=== PATIENT | male | born 1950 | race Caucasian/White ===

== ENCOUNTER 2017-11-18 05:14 | Day surgery (SDC) | payer BC, SELFPAY ==
[2017-11-18] VITALS (7 sets, daily range): BP systolic 93–125; BP diastolic 66–81; PULSE 66–83; RESP 16; TEMP 36.4–36.9; O2SAT 94–99; BMI 26.0
--- NOTE | 2017-11-18 07:26 | HP.PCM_ITS ---
Problem List (1) Screen for colon cancer Status: Acute History of Present Illness Date of Admission: 11/18/17 The patient is a 66 year old M who presents for screening colonoscopy. Past Medical History Medical History: Medical History (Last Reviewed 11/18/17 @ 07:25 by Perry Jacobo MD) Arthritis M19.90 Allergies No Known Allergies Allergy (Verified 11/15/17 10:22) Home Medications: Ambulatory Orders Medication Instructions Recorded Cider Vinegar [Apple Cider Vinegar] 300 mg PO DAILY 11/15/17 Cyanocobalamin [Vitamin B12] 500 mcg PO DAILY@0800 11/15/17 Multivitamin [Multiple Vitamins] 1 each PO DAILY 11/15/17 [place]-3 Fatty Acids/Fish Oil [Fish 1 each PO DAILY 11/15/17 Oil 1,000 mg Capsule] Omeprazole 20 mg PO PRN PRN 11/15/17 Saw/Vit E/Sod Tori/Lyc/Beta/Pyg 1 each PO DAILY 11/15/17 [Prostate Health Caplet] Smoking Status: Never smoker - *Family History Maternal History Items: No pertinent history Review of Systems Cardiovascular: Denies: Chest Pain, Chest Pressure, Chest Tightness, Palpitat ions Respiratory: Denies: Cough, Hemoptysis, Shortness of breath at rest, Shortness of breath upon exertion, Wheezing Gastrointestinal: Denies: Abdominal Pain, Constipation, Diarrhea, Hematemesis, Nausea, Melena, Vomiting VTE Information - Inpt Only VTE Present on Admission: No VTE Mechan Device Prophylaxis: None VTE Pharm Prophylaxis ordered?: No Reason prophylaxis not ordered:: Treatment Not Indicated Patient Problems: Active and Suspected Problems (Last Updated 01/29/17 @ 15:57 by Yris Jackman) Screen for colon cancer (Acute) - Physical Exam Lungs: Clear to auscultation Cardiovascular: Regular rate, Regular Rhythm, No murmurs Abdomen: Bowel Sounds Present, Soft, Non Tender, Non-Distended Vital Signs Temp Pulse Resp BP Pulse Ox 98.5 F 83 16 125/81 H 99 11/18/17 05:43 11/18/17 05:43 11/18/17 05:43 11/18/17 05:43 11/18/17 05:43 Oxygen Delivery Method Room Air Weight: 173 lb 11.588 oz Body Mass Index (BMI) 26.0 Assessment/Plan All Active Problems (Last Updated 01/29/17 @ 15:57 by Yris Jackman) Screen for colon cancer (Acute) Low back strain (Acute) Plan is to perform a colonoscopy.
--- NOTE | 2017-11-18 07:31 | OP.ENDO_ITS ---
Patient Name: Willie Briseno Procedure Date: 11/18/2017 7:04 AM Date of : 1950 Age: 66 Procedure: Colonoscopy Indications: Screening for colorectal malignant neoplasm Providers: Perry Jacobo MD Referring MD: Mark Obando MD Medicines: See the Anesthesia note for documentation of the administered medications Patient Profile: Last Colonoscopy: more than 10 years ago. Complications: No immediate complications. Procedure: Pre-Anesthesia Assessment: - Prior to the procedure, a History and Physical was performed, and patient medications and allergies were reviewed. The patient's tolerance of previous anesthesia was also reviewed. The risks and benefits of the procedure and the sedation options and risks were discussed with the patient. All questions were answered, and informed consent was obtained. Prior Anticoagulants: The patient has taken no previous anticoagulant or antiplatelet agents. ASA Grade Assessment: II - A patient with mild systemic disease. After reviewing the risks and benefits, the patient was deemed in satisfactory condition to undergo the procedure. After I obtained informed consent, the scope was passed under direct vision. Throughout the procedure, the patient's blood pressure, pulse, and oxygen saturations were monitored continuously. The adult colonoscope was introduced through the anus and advanced to the terminal ileum. The colonoscopy was performed without difficulty. The patient tolerated the procedure well. The quality of the bowel preparation was good. Scope In: 7:12:27 AM Scope Withdrawal Time 0 hours 6 minutes 8 seconds Scope Out: 7:23:44 AM Total Procedure Duration Time 0 hours 11 minutes 17 seconds Findings: The perianal and digital rectal examinations were normal. Multiple small-mouthed diverticula were found in the sigmoid colon. No biopsies or other specimens were collected for this exam. Non-bleeding internal hemorrhoids were found during retroflexion. The hemorrhoids were mild and small. The exam was otherwise without abnormality. Impression: - Diverticulosis in the sigmoid colon. No specimens collected. - Non-bleeding internal hemorrhoids. - The examination was otherwise normal. Recommendation: - Discharge patient to home. - Resume previous diet. - Continue present medications. - Repeat colonoscopy in 10 years for screening purposes. - Return to primary care physician PRN. Procedure Code(s): --- Professional --- G0121, Colorectal cancer screening; colonoscopy on individual not meeting criteria for high risk Diagnosis Code(s): --- Professional --- Z12.11, Encounter for screening for malignant neoplasm of colon K64.8, Other hemorrhoids K57.30, Diverticulosis of large intestine without perforation or abscess without bleeding CPT copyright 2017 [employer]. All rights reserved. The codes documented in this report are preliminary and upon service bar cashier review may be revised to meet current compliance requirements. MD Perry Fernández MD 11/18/2017 7:30:24 AM This report has been signed electronically. Number of Addenda: 0 Note Initiated On: 11/18/2017 7:04 AM
== END 2017-11-18 08:10 | disposition home or self-care (01) ==
LOC: EN 05:15 → AC 05:21
PROVIDERS: Family Provider Family Medicine; PCP Family Medicine; Referring Provider Surgery; Visit Provider Surgery
PROC: 0DJD8ZZ Inspection of Lower Intestinal Tract, Via Natural or Artificial Opening Endoscopic (ICD-10-PCS; CPT 45378; principal; 2017-11-18 06:55)
DX: Z12.11 Encounter for screening for malignant neoplasm of colon (principal); K57.30 Diverticulosis of large intestine without perforation or abscess without bleeding; K64.8 Other hemorrhoids; S39.012A Strain of muscle, fascia and tendon of lower back, initial encounter; X58.XXXA Exposure to other specified factors, initial encounter; Y93.9 Activity, unspecified; Y92.9 Unspecified place or not applicable; Y99.9 Unspecified external cause status
CPT/HCPCS: 45378; J7120

== ENCOUNTER 2018-01-07 08:03 | Emergency (ER) | payer BC, SELFPAY ==
[2018-01-07 08:04] VITALS: BP 136/92; PULSE 70; RESP 16; TEMP 36.6; O2SAT 98; BMI 27.3
--- NOTE | 2018-01-07 08:24 | EKG12_ITS ---
Test Reason : WEAKNESS Blood Pressure : / mmHG Vent. Rate : 060 BPM Atrial Rate : 060 BPM P-R Int : 154 ms QRS Dur : 096 ms QT Int : 428 ms P-R-T Axes : 007 -30 -01 degrees QTc Int : 428 ms Normal sinus rhythm Left axis deviation Minimal voltage criteria for LVH, may be normal variant Abnormal ECG Confirmed by ZULMA JACOBS, AYUSH ([id number]), editor continuity and script JAMAL CHEN ([id number]) on 01/10/2018 2:23:46 PM Referred By: TING Confirmed By:AYUSH MAYA MD
[2018-01-07 09:42] LABS: Absolute Lymphocyte Count 0.97 X10^3/ul (0.83-4.51); Absolute Neutrophil Count 4.5 X10^3/uL (2.0-7.7); Basophil# 0.03 X10^3/uL; Basophil% 0.5 % (0-1); Eosinophil# 0.06 X10^3/uL; Hematocrit 43.7 % (40-54); Hemoglobin 14.6 g/dl (13.0-16.5); Lymphocyte # 0.97 X10^3/ul (4.0); Mean Corp Hgb Conc 33.4 g/gl (32-36); Mean Corpuscular Hgb 30.3 pg (27.0-32.0); Mean Corpuscular Volume 90.7 fL (80-94); Mean Platelet Vol. 9.7 fl (6.2-12.0); Monocyte# 0.55 X10^3/uL; Neutrophil # 4.47 X10^3/uL (2.7-7.7); Neutrophil % 73.5 % (47-70); Platelet Count 198 K/mm3 (150-450); RBC Distribution Width CV 12.7 % (11.6-14.6); RBC Distribution Width SD 42.1 fl (35.1-43.9); Red Blood Count 4.82 M/mm3 (4.6-6.2); White Blood Count 6.1 K/mm3 (4.4-11.0)
[2018-01-07 09:44] LABS: POSITIVE COUNT NO; POSITIVE DIFFERENTIAL NO; POSITIVE MORPHOLOGY NO
[2018-01-07 09:53] LABS: Bacteria 0 SEEN /hpf (None Seen); Mucous, Urine 0 SEEN /hpf (<or=2+); Red Blood Cells-Urine 0 SEEN /hpf (0-5); Squamous Epithelial Cells - UA 0 SEEN /hpf (0-5); White Blood Cells 0 SEEN /hpf (0-5)
[2018-01-07 10:04] LABS: Color, Urine Yellow (Yellow); Glucose, Dipstick Normal (Normal); Ketone-Dipstick Negative (Negative); Leukocyte Esterase-Dipstick Negative /ul (Negative); Nitrite-Dipstick Negative (Negative); Occult Blood-Urine Negative /ul (Negative); Protein-Dipstick Negative (Negative); Specific Gravity, Urine 1.005 (1.002-1.030); Urine Bilirubin Dipstick Negative (Negative); Urine Clarity Clear (Clear); Urine Urobilinogen Normal (Normal); Urine pH 6.5 (5.0 - 8.0)
[2018-01-07 10:08] LABS: ALB/GLOB Ratio 1.1 RATIO (0.9-2.4); AST(SGOT) 18 U/L (15-37); Alanine Aminotransfer ALT/SGPT 23 U/L (16-61); Albumin, Serum 3.7 g/dL (3.2-5.0); Alkaline Phosphatase 58 U/L (45-117); Anion Gap 8 (5-15); BUN 17 mg/dL (7-18); BUN/Creat Ratio 17.7 RATIO (10-20); Calcium,Total 8.8 mg/dL (8.5-10.1); Chloride 108 mmol/L (98-107); Creatinine, Serum 0.96 mg/dL (0.70-1.30); EST Glomerular Filtration Rate 83 mL/min (>60); Est Glom Filt Rate - Afr Amer 100 mL/min (>60); Estimated Creatinine Clearance 71.25 ml/min; Globulin 3.4 g/dL (2.2-4.2); Glucose 84 mg/dL (74-106); Potassium 4.5 mmol/L (3.5-5.1); Protein, Total 7.1 g/dL (6.4-8.2); Sodium Level 143 mmol/L (136-145); Thyroid Stim Hormone (TSH) 1.15 uIU/mL (0.358-3.74)
--- NOTE | 2018-01-07 10:35 | ED.DCSUM_ITS ---
- ER Visit Summary Date of Service: 01/07/18 Chief Complaint: [Fatigue] History of Present Illness: The patient is a 67 M [presents the emergency department complaint of fatigue that is been going on for 2-3 weeks. Patient thinks that he has had intermittent symptoms going back even further than that. Patient states that he is not been sleeping well at night and at times will wake up and have a hard time falling back asleep. Patient does do a physical job at work but denies any chest pain or significant exertional dyspnea. Patient denies any fever or cough. He denies recent illness. Patient has a family history of thyroid issues and he is not sure if his thyroid might be an issue. Patient denies any blood in his stool or black tarry stool. Patient did have a colonoscopy in November of this year that was unremarkable.] Physical Examination: [HEENT-PERRLA, EOMI. Cranial nerves II through XII grossly intact. TMs clear. Mucous membranes moist. No adenopathy. Cardiovascular-regular rate and rhythm without murmur or ectopy Lungs-clear to auscultation, chest wall stable without crepitus or subcu emphysema Abdomen-normoactive bowel sounds, soft, nontender, no rebound or rigidity, no peritoneal signs. Extremities-intact ?4, normal range of motion, normal pulses, atraumatic] Test Results: [EKG obtained arrival shows sinus rhythm with a ventricular rate of 60 bpm with no significant ST changes. CBC with differential showing a 6.1, hemoglobin 14.6, hematocrit 44, platelets 198. Chemistries unremarkable. Urinalysis was normal. Troponin was less than 0.015. TSH was 1.15.] Emergency Department Course and Treatment: [] Treatment Plan: [Patient to follow-up with primary care physician in 5-7 days. Unclear the etiology of his generalized weakness however he may require further testing such as possibly for sleep apnea and if symptoms do not improve possibly repeat stress testing. Patient states that he had a stress test about 3 years ago that was unremarkable.] Disposition: [Discharged home in stable condition.] Impression: [Generalized weakness-etiology uncertain] This note was generated with [employer] dictation software. It may contain incorrect words, spelling, and punctuation that were not noted in review of the chart prior to signing ED Disposition - Plan for ED Patient: Chief Complaint: Fatigue Referrals: Benjie Obando MD [Primary Care Provider] -
--- NOTE | 2018-01-07 10:35 | ED.DEP ---
ED Disposition - Plan for ED Patient: Chief Complaint: Fatigue Instructions: ED Weakness [facility] Referrals: Benjie Obando MD [Primary Care Provider] - 3-5 Days
[2018-01-07 10:36] VITALS: BP 147/95; PULSE 59; PULSE 60; RESP 14; RESP 18; O2SAT 98
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
== END 2018-01-07 10:42 | disposition home or self-care (01) ==
LOC: ED 08:30
PROVIDERS: Emergency Provider Emergency Medicine; Family Provider Family Medicine; PCP Family Medicine
DX: R53.1 Weakness (principal); R06.00 Dyspnea, unspecified; R35.0 Frequency of micturition; Z79.899 Other long term (current) drug therapy
CPT/HCPCS: 80053; 81001; 84443; 84484; 85025; 93005; 99284; A4216